=== PATIENT | female | born 1945 | race Two or more races ===

== ENCOUNTER 2023-07-10 13:11 | Emergency (ER) | payer MEDICAID ==
[~2023-07-10] VITALS: Ht 152.4 cm; Wt 70.5 kg
[2023-07-10] MEDS ORDERED: ATEN-73 PO (13:17)
[2023-07-10 13:18] VITALS: TEMP 98.3
[2023-07-10 13:44] LABS: BASOPHILS % (AUTO) 1.1 % (0.0-2.0); HEMATOCRIT 38.8 % (36-46); HEMOGLOBIN 12.6 g/dL (12.0-16.0); LYMPHOCYTES # (AUTO) 2.2 K/uL (1.0-4.8); LYMPHOCYTES % (AUTO) 40.2 % (22.0-44.0); MEAN CORPUSCULAR HEMOGLOBIN 28.8 pg (26.0-34.0); MEAN CORPUSCULAR HGB CONC 32.5 G/dL (31.0-37.0); MEAN CORPUSCULAR VOLUME 88 fL (80-100); MONOCYTES # (AUTO) 0.8 K/uL (0.1-1.0); MONOCYTES % (AUTO) 14.7 % (2.0-9.0); NEUTROPHILS # (AUTO) 2.3 K/uL (1.8-7.7); PLATELET COUNT (AUTO) 168 K/uL (150-450); RED BLOOD CELL COUNT(AUTO) 4.39 MIL/uL (4.00-5.20); WHITE BLOOD COUNT (AUTO) 5.5 K/uL (4.5-11.0)
[2023-07-10 13:52] LABS: ANION GAP 9 mmol/L (8-16); CALCIUM, TOTAL 8.8 mg/dL (8.8-10.5); CARBON DIOXIDE 27 mmol/L (22-29); CHLORIDE 101 mmol/L (98-107); CREATININE 0.65 mg/dL (0.60-1.30); GLOMERULAR FILTR. RATE CALC > 60 mL/min (>60); GLUCOSE,RANDOM 96 mg/dL (70-110); POTASSIUM 4.2 mmol/L (3.5-5.1); SODIUM SERUM 137 mmol/L (136-145); UREA NITROGEN, BLOOD 23 mg/dL (7-18)
[2023-07-10 13:59] LABS: ALANINE AMINOTRANSFERASE 18 U/L (12-78); ALBUMIN 3.2 g/dL (3.4-5.0); ALKALINE PHOSPHATASE 60 U/L (46-116); ASPARTATE AMINOTRANSFERASE 22 U/L (15-37); BILIRUBIN,TOTAL 0.4 mg/dL (0.1-1.0); TOTAL PROTEIN, SERUM 7.5 g/dL (6.4-8.2)
[2023-07-10 14:01] LABS: TROPONIN I-HIGH SENSITIVITY 4 ng/L (<51)
[2023-07-10 15:00] LABS: PROTHROMBIN TIME 10.7 SEC (9.4-11.6)
[2023-07-10 15:05] LABS: CREATINE KINASE, TOTAL ONLY 52 U/L (26-192)
[2023-07-10 15:12] LABS: TROPONIN I-HIGH SENSITIVITY Less Than 4 ng/L (<51)
[2023-07-10 15:18] LABS: B-TYPE NATRIURETIC PEPTIDE 30 pg/mL (0-100)
[2023-07-10 16:40] VITALS: BP 105/70; PULSE 78; RESP 18
[2023-07-10 17:19] LABS: TROPONIN I-HIGH SENSITIVITY Less Than 4 ng/L (<51)
[2023-07-10 17:50] LABS: APPEARANCE,URINE CLEAR (CLEAR); BILIRUBIN,URINE NEGATIVE (NEGATIVE); COLOR,URINE YELLOW (YELLOW); GLUCOSE, URINE (UA) NEGATIVE (NEGATIVE); KETONES,URINE NEGATIVE (NEGATIVE); LEUKOCYTE ESTERASE ,URINE NEGATIVE (NEGATIVE); NITRATE,URINE NEGATIVE (NEGATIVE); OCCULT BLOOD,URINE NEGATIVE (NEGATIVE); PH,URINE 5.5 (5.0-8.0); PROTEIN,URINE TRACE mg/dL (NEGATIVE); SPECIFIC GRAVITIY, URINE 1.024 (1.003-1.030); UROBILINOGEN,URINE <=1.0 mg/dL (<=1.0)
[2023-07-10] MEDS: ACETAMINOPHEN 500 MG TABLET PO ONE (18:10)
== END 2023-07-10 18:53 | disposition home or self-care (01) ==
LOC: EMS 13:12
DX: R07.9 Chest pain, unspecified (principal); F41.9 Anxiety disorder, unspecified; M79.601 Pain in right arm; I10 Essential (primary) hypertension
CPT/HCPCS: 70450; 71045; 80053; 81003; 82550; 83880; 84484; 85025; 85610; 85730; 93005; 99285; 36415-L1; 36415-TC

== ENCOUNTER 2024-05-08 09:06 | Emergency (ER) | payer MEDICAID ==
[~2024-05-08] VITALS: Ht 152.4 cm; Wt 63.6 kg
[~2024-05-08 09:06] MED LIST: ATEN-73 PO
[2024-05-08 09:10] VITALS: TEMP 98.1
[2024-05-08 10:07] VITALS: BP 120/75; PULSE 82; RESP 18; O2SAT 97
[2024-05-08] MEDS: OXYMETAZOLINE HCL 0.05% 15 ML NASAL SPRAY NASAL ONE (11:08)
== END 2024-05-08 12:01 | disposition home or self-care (01) ==
LOC: EMS 09:06
DX: R04.0 Epistaxis (principal); I10 Essential (primary) hypertension; Z79.899 Other long term (current) drug therapy
CPT/HCPCS: 99282; Z7502; Z7610